=== PATIENT | male | born 1945 | race Caucasian/White ===

== ENCOUNTER 2016-09-03 15:00 | Inpatient (IN) | payer OTHER, BC ==
[~2016-09-03] VITALS: Ht 175.3 cm; Wt 96.6 kg
[2016-09-03 15:44] LABS: HEMATOCRIT 38.1 % (38.0-50.0); MCH 33.8 PG (29.0-34.0); MCHC 34.4 G/DL (30.0-36.0); MCV 98.2 FL (86-99); MEAN PLAT.VOLUME 10.8 uM^3 (9.0-12.4); PLATELET COUNT 183 K/uL (156-360); RBC DIS.WIDTH-CV 12.8 % (11.8-14.6); RBC DIS.WIDTH-SD 45.9 % (39-53); RED BLOOD COUNT 3.88 M/uL (4.00-5.50); WHITE BLOOD COUNT 6.5 K/uL (4.1-10.2)
[2016-09-03 16:04] LABS: ANION GAP 10 MEQ/L (2-14); CHLORIDE 107 MEQ/L (99-109); POTASSIUM 4.5 MEQ/L (3.7-5.4); SAMPLE HEMOLYSIS CHECK 0; SAMPLE ICTERIC CHECK 0; SAMPLE LIPEMIA CHECK 0; SODIUM 141 MEQ/L (136-147)
[2016-09-03 16:10] LABS: GFR ESTIMATE (CALCULATED) 49 mL/min/; GLUCOSE 99 mg/dL (70-99); UREA NITROGEN (BUN) 33 mg/dL (9-23)
[2016-09-03 16:15] LABS: TROP-I INTERPRETATION NEGATIVE; TROPONIN-I 0.03 ng/mL (0.0-0.30)
[2016-09-03 18:54] LABS: TROP-I INTERPRETATION NEGATIVE; TROPONIN-I 0.23 ng/mL (0.0-0.30)
[2016-09-03] MEDS ORDERED: LOPRESSOR25 MG PO (19:07)
[2016-09-03] MEDS ORDERED: ALLOPURINOL100 MG PO (19:08)
[2016-09-03] MEDS ORDERED: NORVASC10 MG PO (19:08)
[2016-09-03] MEDS ORDERED: GLUCOSAMINE H1500 MG PO (19:08)
[2016-09-03] MEDS ORDERED: ELIQUIS5 MG PO (19:08)
[2016-09-03] MEDS ORDERED: CENTRUM SILVER1 EAC3 PO (19:09)
[2016-09-03 22:26] LABS: TROP-I INTERPRETATION POSITIVE; TROPONIN-I 0.79 ng/mL (0.0-0.30)
[2016-09-04 01:10] LABS: ADD MIUA? NO; BILIRUBIN NEGATIVE; BLOOD NEGATIVE; COLOR YELLOW ((YELLOW)); GLUCOSE (STRIP) NEGATIVE; KETONES NEGATIVE; LEUKOCYTES NEGATIVE; NITRITE NEGATIVE; PROTEIN (STRIP) NEGATIVE; SPECIFIC GRAVITY 1.019 (1.000-1.030); UROBILINOGEN 0.2 MG/DL (0.2-1.0)
[2016-09-04 01:18] LABS: INTER. NORMALIZED RATIO 1.1; PROTHROMBIN TIME 11.3 (9.2-11.2); PTT 31.1 (25-32)
[2016-09-04 01:30] VITALS: BP 144/77
[2016-09-04 03:19] LABS: HDL CHOLESTEROL 41 MG/DL (Desirable>=40); LDL CHOLESTEROL 105 mg/dL (Desirable<100); NON-HDL CHOLESTEROL 119 mg/dL (Desirable<160); TOTAL CHOLESTEROL 160 mg/dL (Desirable<200); TRIGLYCERIDES 72 MG/DL (Normal: <150)
[2016-09-04 03:34] LABS: TROP-I INTERPRETATION POSITIVE; TROPONIN-I 2.09 ng/mL (0.0-0.30)
[2016-09-04 05:05] VITALS: BP 111/60
[2016-09-04 07:30] VITALS: BP 133/82
[2016-09-04 09:06] LABS: TROP-I INTERPRETATION POSITIVE; TROPONIN-I 1.72 ng/mL (0.0-0.30)
[2016-09-04 11:23] VITALS: BP 132/67
[2016-09-04 16:30] VITALS: BP 132/67
[2016-09-04 17:29] LABS: TROP-I INTERPRETATION POSITIVE; TROPONIN-I 0.84 ng/mL (0.0-0.30)
[2016-09-04 19:13] VITALS: BP 123/71
== END 2016-09-04 21:50 | disposition short-term general hospital (02) | DRG 282 ==
LOC: EME 15:00 → EDOF 20:01 → 4EAST 22:33 → EDOF 22:33 → 4EAST 09-04 01:27
PROVIDERS: Physician Assistant Medical
DX: I21.4 Non-ST elevation (NSTEMI) myocardial infarction (principal); I25.10 Atherosclerotic heart disease of native coronary artery without angina pectoris; I25.5 Ischemic cardiomyopathy; I48.2 Chronic atrial fibrillation; I12.9 Hypertensive chronic kidney disease with stage 1 through stage 4 chronic kidney disease, or unspecified chronic kidney disease; N18.3 Chronic kidney disease, stage 3 (moderate); E78.5 Hyperlipidemia, unspecified; M10.9 Gout, unspecified; Z79.01 Long term (current) use of anticoagulants; Z82.49 Family history of ischemic heart disease and other diseases of the circulatory system
CPT/HCPCS: 71020; 80048; 80061; 81003; 84484; 85027; 85347; 85610; 85730; 93005; 99281; 99285; C1769; C1887; J1644; J2250; J3010; J7030; J7040